=== PATIENT | female | born 1995 | race Caucasian/White ===

== ENCOUNTER → 2021-03-31 | Outpatient (REF) | LOC: M EMP 10:14 | PROVIDERS: ATTEND Family Medicine | DX: Z11.52 Encounter for screening for COVID-19 (principal); Z20.822 Contact with and (suspected) exposure to COVID-19 ==

== ENCOUNTER → 2021-04-09 | Outpatient (REF) | LOC: M LABSMTC 13:52 | PROVIDERS: ATTEND Pediatrics | DX: Z11.52 Encounter for screening for COVID-19 (principal) ==

== ENCOUNTER → 2022-06-14 | Outpatient (REF) ==
[2022-06-14 10:20] LABS: RSV AMPLIFICATION NEGATIVE (NEGATIVE)
== END ==
LOC: M EMP 07:52
PROVIDERS: ATTEND Family Medicine
DX: Z11.59 Encounter for screening for other viral diseases (principal)